=== PATIENT | female | born 1945 | race Hispanic/Latino ===

== ENCOUNTER → 2017-08-05 | Outpatient (CLI) | payer MEDICARE ==
[~2017-08-05] MED LIST: ATOR10 PO; GLIP5TAB11 PO; INSLAN SQ; LEVO500T89 PO; LEVO50TA11 PO; LOSA50TA37 PO; METF10004 PO; SITA100T12 PO; SULF10VI2 IV
== END | disposition home or self-care (01) ==
LOC: RAH 09:01
PROVIDERS: ATTEND Family Medicine
DX: K21.9 Gastro-esophageal reflux disease without esophagitis (principal); K44.9 Diaphragmatic hernia without obstruction or gangrene
CPT/HCPCS: 74240

== ENCOUNTER → 2022-03-09 | Outpatient (CLI) | payer MEDICARE ==
[~2022-03-09] MED LIST changes: +LEVO-70 PO; -LEVO500T89 PO; -LOSA50TA37 PO; +LOSA50TA64 PO; +METF-446 PO; -METF10004 PO
== END | disposition home or self-care (01) ==
LOC: RAH 09:20
PROVIDERS: ATTEND Nurse Practitioner Family
DX: R05.9 Cough, unspecified (principal)
CPT/HCPCS: 71046

== ENCOUNTER 2022-09-14 15:22 | Observation (INO) | payer MEDICARE ==
[~2022-09-14] VITALS: Ht 167.6 cm; Wt 64.9 kg
[~2022-09-14 15:22] MED LIST changes: +AEC81 PO; +AMLO-258 PO; -ATOR10 PO; +ATOR40TA69 PO; +CLOP-31 PO; +INSU200I4 SQ; +LEVO75CA5 PO; +LOSA-418 PO; -LOSA50TA64 PO; +METO25 PO; +MONT-39 PO; +OMEP40CA21 PO
[2022-09-14 15:38] LABS: BASOPHILS % (AUTO) 0.7 % (0.0-5.0); EOSINOPHILS % (AUTO) 1.5 % (0.0-8.0); HEMATOCRIT 41.2 % (36-48); LYMPHOCYTES % (AUTO) 29.6 % (21.0-51.0); MEAN CORPUSCULAR HEMOGLOBIN 26.5 pg (27.0-33.0); MEAN CORPUSCULAR HGB CONC 31.8 g/dL (32.0-36.0); MEAN CORPUSCULAR VOLUME 83.2 fL (79-99); MONOCYTES % (AUTO) 6.2 % (3.0-13.0); NEUTROPHILS % (AUTO) 61.2 % (40.0-77.0); PLATELET COUNT (AUTO) 334 K/uL (130-400); RED BLOOD CELL COUNT(AUTO) 4.95 MIL/uL (4.00-5.50); RED CELL DISTRIBUTION WIDTH 14.1 % (11.0-15.5)
[2022-09-14 15:49] LABS: POTASSIUM 4.1 mmol/L (3.5-5.1)
[2022-09-14 15:54] LABS: ALBUMIN 3.6 g/dL (3.5-5.0); TOTAL PROTEIN, SERUM 8.3 g/dL (6.0-8.3)
[2022-09-14 16:46] LABS: B-TYPE NATRIURETIC PEPTIDE 730 pg/mL (0-100)
[2022-09-14] MEDS ORDERED: CARVEDILOL 6.25 MG TABLET PO ONE (17:00)
[2022-09-14] MEDS ORDERED: LOSARTAN 25 MG TABLET PO ONE (17:00)
[2022-09-14 17:25] LABS: APPEARANCE,URINE CLEAR (CLEAR); BILIRUBIN,URINE NEGATIVE (NEGATIVE); COLOR,URINE COLORLESS (YELLOW); GLUCOSE, URINE (UA) NEGATIVE (NEGATIVE); KETONES,URINE NEGATIVE (NEGATIVE); LEUKOCYTE ESTERASE ,URINE NEGATIVE Leu/uL (NEGATIVE); NITRATE,URINE NEGATIVE (NEGATIVE); OCCULT BLOOD,URINE NEGATIVE (NEGATIVE); PROTEIN,URINE NEGATIVE (NEGATIVE); UROBILINOGEN,URINE 0.2 mg/dL (0.2-1.0)
[2022-09-14 17:27] LABS: RBC,URINE 0-1 /HPF (0-1); SQUAMOUS EPITHELIAL CELL,UR RARE /HPF (0-2); WBC,URINE 0-1 /HPF (0-1)
[2022-09-14] MEDS ORDERED: GLUCAGON 1MG KIT 1 MG ML IM PRN (17:30)
[2022-09-14] MEDS ORDERED: KCL 20 MEQ ERTAB PO PRN (17:30)
[2022-09-14] MEDS ORDERED: ONDANSETRON 4MG INJ IV PRN (17:30)
[2022-09-14] MEDS ORDERED: DEXTROSE 50%-WATER 50 ML DISP.SYRIN IV PRN (17:30)
[2022-09-14] MEDS ORDERED: LACTULOSE 20 GM/30 ML UDCUP PO PRN (17:30)
[2022-09-14] MEDS ORDERED: MAGNESIUM 2GM PREMIX 50ML 50 ML IV PRN (17:30)
[2022-09-14] MEDS ORDERED: NITROGLYCERIN 0.4 MG SL TAB SL PRN (17:30)
[2022-09-14] MEDS ORDERED: DIPHENHYDRAMINE HCL 25 MG CAPSULE PO PRN (17:30)
[2022-09-14] MEDS ORDERED: POTASSIUM CHLORIDE 10% ELIXIR 20 MEQ/15 ML UDCUP PO PRN (17:30)
[2022-09-14] MEDS ORDERED: DiphenhydrAMINE HCL 50 MG/ML VIAL IV PRN (17:30)
[2022-09-14] MEDS ORDERED: GUAIFENESIN-DM 200/20 MG 10 ML PO PRN (17:30)
[2022-09-14] MEDS ORDERED: MAG/ALUM/SIMETH 30 ML UDCUP PO PRN (17:30)
[2022-09-14] MEDS ORDERED: ACETAMINOPHEN 325 MG TAB PO PRN ×2 (17:30)
[2022-09-14] MEDS ORDERED: POTASSIUM CHLORIDE 20MEQ/100ML 100 ML IV PRN (17:30)
[2022-09-14] MEDS ORDERED: HYDROMORPHONE 1 MG INJ IV PRN (17:30)
[2022-09-14] MEDS ORDERED: HYDROCODONE/ACETAMINOPHEN 5/325 MG TAB PO PRN ×2 (17:30)
[2022-09-14 20:37] VITALS: BP 137/61
[2022-09-14] MEDS: INSULIN HUMULIN R 100 UNIT/ML 3ML SQ SCH (21:00)
[2022-09-14] MEDS: CARVEDILOL 6.25 MG TABLET PO SCH (21:00)
[2022-09-14] MEDS: FAMOTIDINE 20MG VIAL IV SCH (21:00)
[2022-09-14] MEDS: FAMOTIDINE 20MG TAB PO SCH (22:00)
[2022-09-14] MEDS: ATORVASTATIN 40 MG TABLET PO SCH (22:00)
[2022-09-14] MEDS: MONTELUKAST SODIUM 10 MG TAB PO SCH (22:00)
[2022-09-14] MEDS: HEPARIN 5,000 UNIT VIAL SQ SCH (22:05)
[2022-09-14 23:20] VITALS: BP 113/56
[2022-09-15 04:00] VITALS: BP_SYST 120; BP_SYST 134; BP_DIAS 61; BP_DIAS 82
[2022-09-15 04:24] LABS: BASOPHILS % (AUTO) 0.9 % (0.0-5.0); EOSINOPHILS % (AUTO) 2.7 % (0.0-8.0); HEMATOCRIT 36.3 % (36-48); LYMPHOCYTES % (AUTO) 28.8 % (21.0-51.0); MEAN CORPUSCULAR HGB CONC 31.4 g/dL (32.0-36.0); MONOCYTES % (AUTO) 7.6 % (3.0-13.0); NEUTROPHILS % (AUTO) 59.4 % (40.0-77.0); PLATELET COUNT (AUTO) 260 K/uL (130-400); RED BLOOD CELL COUNT(AUTO) 4.22 MIL/uL (4.00-5.50); RED CELL DISTRIBUTION WIDTH 14.2 % (11.0-15.5); WHITE BLOOD COUNT (AUTO) 9.8 K/uL (4.8-10.8)
[2022-09-15 04:43] LABS: ALBUMIN 2.8 g/dL (3.5-5.0); MAGNESIUM 1.6 mg/dL (1.80-2.40); PHOSPHORUS 4.9 mg/dL (2.5-4.9); POTASSIUM 4.2 mmol/L (3.5-5.1); TOTAL PROTEIN, SERUM 6.7 g/dL (6.0-8.3)
[2022-09-15] MEDS: INSULIN HUMULIN R 100 UNIT/ML 3ML SQ SCH ×4 (05:54→21:12)
[2022-09-15] MEDS: LEVOTHYROXINE 75 MCG TABLET PO SCH (06:03)
[2022-09-15] MEDS: FAMOTIDINE 20MG TAB PO SCH (08:44)
[2022-09-15] MEDS: DULOXETINE HCL 30 MG CAP PO SCH (08:44)
[2022-09-15] MEDS: CLOPIDOGREL 75MG TAB PO SCH (08:44)
[2022-09-15] MEDS: ASPIRIN 81 MG EC TAB PO SCH (08:44)
[2022-09-15] MEDS: AMLODIPINE 5 MG TAB PO SCH (08:45)
[2022-09-15] MEDS: LOSARTAN 50 MG TABLET PO SCH (08:46)
[2022-09-15] MEDS: CARVEDILOL 6.25 MG TABLET PO SCH ×2 (08:46→20:41)
[2022-09-15 08:55] VITALS: BP 131/51
[2022-09-15] MEDS: HEPARIN 5,000 UNIT VIAL SQ SCH ×3 (08:59→20:39)
[2022-09-15] MEDS ORDERED: LOSARTAN 25 MG TABLET PO SCH (09:00)
[2022-09-15] MEDS: FAMOTIDINE 20MG VIAL IV SCH (09:00)
[2022-09-15 12:34] VITALS: BP 123/52
[2022-09-15 16:12] VITALS: BP 142/65
[2022-09-15 19:41] VITALS: BP 131/66
[2022-09-15] MEDS: ATORVASTATIN 40 MG TABLET PO SCH (20:37)
[2022-09-15] MEDS: MONTELUKAST SODIUM 10 MG TAB PO SCH (20:38)
[2022-09-15 23:39] VITALS: BP 124/56
[2022-09-16 03:50] LABS: BASOPHILS % (AUTO) 0.8 % (0.0-5.0); EOSINOPHILS % (AUTO) 2.3 % (0.0-8.0); HEMATOCRIT 36.5 % (36-48); LYMPHOCYTES % (AUTO) 28.7 % (21.0-51.0); MEAN CORPUSCULAR HEMOGLOBIN 26.5 pg (27.0-33.0); MEAN CORPUSCULAR HGB CONC 31.2 g/dL (32.0-36.0); MEAN CORPUSCULAR VOLUME 84.9 fL (79-99); MONOCYTES % (AUTO) 8.2 % (3.0-13.0); NEUTROPHILS % (AUTO) 59.5 % (40.0-77.0); PLATELET COUNT (AUTO) 306 K/uL (130-400); WHITE BLOOD COUNT (AUTO) 10.2 K/uL (4.8-10.8)
[2022-09-16 04:00] VITALS: BP 126/57
[2022-09-16 04:05] LABS: ALBUMIN 2.7 g/dL (3.5-5.0); TOTAL PROTEIN, SERUM 6.4 g/dL (6.0-8.3)
[2022-09-16] MEDS: LEVOTHYROXINE 75 MCG TABLET PO SCH (06:22)
[2022-09-16] MEDS: INSULIN HUMULIN R 100 UNIT/ML 3ML SQ SCH ×2 (06:44→14:05)
[2022-09-16 07:00] VITALS: BP 122/59
[2022-09-16] MEDS: FAMOTIDINE 20MG VIAL IV SCH (09:00)
[2022-09-16] MEDS ORDERED: CARVEDILOL 12.5 MG TABLET PO SCH ×2 (09:00)
[2022-09-16] MEDS: HEPARIN 5,000 UNIT VIAL SQ SCH ×2 (10:02→14:06)
[2022-09-16] MEDS: AMLODIPINE 5 MG TAB PO SCH (10:03)
[2022-09-16] MEDS: ASPIRIN 81 MG EC TAB PO SCH (10:03)
[2022-09-16] MEDS: DULOXETINE HCL 30 MG CAP PO SCH (10:03)
[2022-09-16] MEDS: FAMOTIDINE 20MG TAB PO SCH (10:04)
[2022-09-16] MEDS: LOSARTAN 50 MG TABLET PO SCH (10:04)
[2022-09-16] MEDS: CLOPIDOGREL 75MG TAB PO SCH (10:05)
[2022-09-16 11:00] VITALS: BP 130/60
[2022-09-16] MEDS ORDERED: DULO30CA2 PO (12:43)
[2022-09-16] MEDS ORDERED: CARV6.25 PO (12:43)
== END 2022-09-16 15:17 | disposition home or self-care (01) ==
LOC: EDH 15:22 → INTOOBSV 17:21 → EDHIP 17:21 → 2AH 20:22
PROVIDERS: ADMIT Internal Medicine; ATTEND Internal Medicine
DX: R07.89 Other chest pain (principal); R77.8 Other specified abnormalities of plasma proteins; I51.81 Takotsubo syndrome; I12.9 Hypertensive chronic kidney disease with stage 1 through stage 4 chronic kidney disease, or unspecified chronic kidney disease; E11.22 Type 2 diabetes mellitus with diabetic chronic kidney disease; N18.32 Chronic kidney disease, stage 3b; E03.9 Hypothyroidism, unspecified; E78.5 Hyperlipidemia, unspecified; F41.9 Anxiety disorder, unspecified; E78.00 Pure hypercholesterolemia, unspecified; I25.10 Atherosclerotic heart disease of native coronary artery without angina pectoris; Z79.82 Long term (current) use of aspirin; Z90.710 Acquired absence of both cervix and uterus; Z79.899 Other long term (current) drug therapy
CPT/HCPCS: 99285; 71045; 96372 ×3; 83735 ×2; 84484; 80053 ×3; 83880; 85025 ×3; 82948 ×7; 81001; 36415 ×3; 93005; 93306; 96365; 96366; 84100; 93356; J1644 ×6; J1815 ×2; J3475; G0378

== ENCOUNTER → 2022-12-01 | Outpatient (CLI) | payer MEDICARE ==
[~2022-12-01] MED LIST changes: +CARV6.25 PO; +DULO30CA2 PO; -GLIP5TAB11 PO; -INSLAN SQ; -LEVO-70 PO; -LEVO50TA11 PO; -METF-446 PO; -METO25 PO; -SITA100T12 PO; -SULF10VI2 IV
== END | disposition home or self-care (01) ==
LOC: SHCH 13:38
PROVIDERS: ATTEND Student in an Organized Health Care Education/Training Program
DX: I11.0 Hypertensive heart disease with heart failure (principal); I50.9 Heart failure, unspecified; I08.0 Rheumatic disorders of both mitral and aortic valves
CPT/HCPCS: 93306

== ENCOUNTER → 2023-07-04 | Outpatient (CLI) | payer MEDICARE | END | disposition home or self-care (01) | LOC: SHCH 09:34 | PROVIDERS: ATTEND Student in an Organized Health Care Education/Training Program | DX: I42.1 Obstructive hypertrophic cardiomyopathy (principal) | CPT/HCPCS: 93306 ==

== ENCOUNTER → 2023-10-26 | Outpatient (CLI) | payer MEDICARE | END | disposition home or self-care (01) | LOC: SHCH 09:14 | PROVIDERS: ATTEND Student in an Organized Health Care Education/Training Program | DX: I08.8 Other rheumatic multiple valve diseases (principal); I42.1 Obstructive hypertrophic cardiomyopathy | CPT/HCPCS: 93306 ==

== ENCOUNTER → 2023-12-07 | Outpatient (CLI) | payer MEDICARE ==
[~2023-12-07] MED LIST changes: +IOHEXOL 350 MG/ML 100ML INFUS..BTL IV ONE; +METOPROLOL TARTRATE 1 MG/ML 5ML VIAL IV ONE; +NITROGLYCERIN 4.1 GM SPRAY TL ONE
== END | disposition home or self-care (01) ==
LOC: CANPRECLI → RAH 08:33
PROVIDERS: ATTEND Student in an Organized Health Care Education/Training Program
DX: R07.9 Chest pain, unspecified (principal); M47.815 Spondylosis without myelopathy or radiculopathy, thoracolumbar region
CPT/HCPCS: 75574; J3490 ×2; Q9967

== ENCOUNTER 2024-01-09 05:50 | Day surgery (SDC) | payer MEDICARE ==
[2024-01-06 11:29] LABS: BASOPHILS # (AUTO) 0.08 K/uL (0.00-0.20); BASOPHILS % (AUTO) 0.9 % (0.0-5.0); EOSINOPHILS # (AUTO) 0.17 K/uL (0.00-0.70); EOSINOPHILS % (AUTO) 1.8 % (0.0-8.0); HEMATOCRIT 43.4 % (36-48); IMMATURE GRANULOCYTE ABSOLUTE 0.04 K/uL (0-1); LYMPHOCYTES # (AUTO) 2.2 K/uL (1.0-4.8); LYMPHOCYTES % (AUTO) 24.3 % (21.0-51.0); MEAN CORPUSCULAR HEMOGLOBIN 25.3 pg (27.0-33.0); MEAN CORPUSCULAR HGB CONC 30.4 g/dL (32.0-36.0); MEAN CORPUSCULAR VOLUME 83.1 fL (79-99); MONOCYTES # (AUTO) 0.6 K/uL (0.1-1.0); MONOCYTES % (AUTO) 6.8 % (3.0-13.0); NEUTROPHILS # (AUTO) 6.1 K/uL (1.8-7.7); NEUTROPHILS % (AUTO) 65.8 % (40.0-77.0); PLATELET COUNT (AUTO) 264 K/uL (130-400); RED BLOOD CELL COUNT(AUTO) 5.22 MIL/uL (4.00-5.50); RED CELL DISTRIBUTION WIDTH 16.3 % (11.0-15.5); WHITE BLOOD COUNT (AUTO) 9.2 K/uL (4.8-10.8)
[2024-01-06 11:30] VITALS: BP 138/65; PULSE 66; RESP 18; TEMP 97.9
[2024-01-06 11:36] LABS: CREATININE 1.4 mg/dL (0.5-1.0); POTASSIUM 5.2 mmol/L (3.5-5.1)
[2024-01-06 11:59] LABS: INR 1.01 (0.85-1.15); PROTHROMBIN TIME 10.9 SEC (9.6-11.6)
[2024-01-06 12:00] LABS: PARTIAL THROMBOPLASTIN TIME 28.4 SEC (26.3-35.5)
[2024-01-06 12:23] LABS: B-TYPE NATRIURETIC PEPTIDE 315 pg/mL (0-100)
[2024-01-09] VITALS (14 sets, daily range): BP systolic 110–142; BP diastolic 39–59; PULSE 65–87; RESP 13–18; TEMP 97.8–97.9
[~2024-01-09] VITALS: Ht 157.5 cm; Wt 74.7 kg
[~2024-01-09 05:50] MED LIST changes: -AEC81 PO; -AMLO-258 PO; +ASPI-1026 PO; +CARV12.511 PO; -CARV6.25 PO; -CLOP-31 PO; +DAPA5TAB PO; +FURO20TA4 PO; -IOHEXOL 350 MG/ML 100ML INFUS..BTL IV ONE; +LORA10TA7 PO; -LOSA-418 PO; +LOSA25TA41 PO; -METOPROLOL TARTRATE 1 MG/ML 5ML VIAL IV ONE; -NITROGLYCERIN 4.1 GM SPRAY TL ONE
[2024-01-09] MEDS ORDERED: 0.9%NACL 1000ML 1,000 ML IV SCH ×2 (07:00→08:30)
[2024-01-09] MEDS: 0.9%NACL 1000ML 1,000 ML IV ONE (07:03)
[2024-01-09] MEDS ORDERED: LIDOCAINE HCL 400MG/20ML VIAL ONE (07:17)
[2024-01-09] MEDS ORDERED: HEParin 10,000 UNIT/10ML (1,000 UNIT/ML) VIAL ONE (07:17)
[2024-01-09] MEDS ORDERED: IOHEXOL 350 MG/ML 100ML INFUS..BTL IV ONE (07:17)
[2024-01-09] MEDS ORDERED: HEParin-NS 1,000 UNIT/500 ML 1,000 ML IV ONE (07:17)
[2024-01-09] MEDS ORDERED: VERAPAMIL HCL 2.5 MG/ML VIAL ONE (07:17)
[2024-01-09] MEDS ORDERED: NITROGLYCERIN 50MG VIAL ONE (07:17)
[2024-01-09] MEDS ORDERED: FENTanyl CITRate PF 50 MCG/1 ML 2ML VIAL ONE (07:26)
[2024-01-09] MEDS ORDERED: MIDAZOLAM HCL 1 MG/ML 2ML VIAL ONE (07:26)
[2024-01-09] MEDS ORDERED: GLUCAGON 1MG KIT 1 MG ML IM PRN (08:30)
[2024-01-09] MEDS ORDERED: DEXTROSE 50%-WATER 50 ML DISP.SYRIN IV PRN (08:30)
== END 2024-01-09 12:30 | disposition home or self-care (01) ==
LOC: DAH 05:50
PROVIDERS: ATTEND Student in an Organized Health Care Education/Training Program
DX: I25.118 Atherosclerotic heart disease of native coronary artery with other forms of angina pectoris (principal); I35.0 Nonrheumatic aortic (valve) stenosis; I05.0 Rheumatic mitral stenosis; E78.5 Hyperlipidemia, unspecified; Z79.01 Long term (current) use of anticoagulants; Z88.0 Allergy status to penicillin; Z90.710 Acquired absence of both cervix and uterus; Z79.82 Long term (current) use of aspirin; Z79.899 Other long term (current) drug therapy
CPT/HCPCS: 80048; 83880; 85025; 85610; 85730; 36415; 71045; 93005; 93460; 82948; C1894 ×2; C1769; A4649; J3010; J3490 ×3; J7030; J1644 ×2; J2250; Q9967; A4215; A4222; A4221; A4663; A4216; A4606; Q9965; A4223 ×3; 99156; 99157

== ENCOUNTER → 2024-08-28 | Outpatient (CLI) | payer MEDICARE ==
[~2024-08-28] MED LIST changes: -LEVO75CA5 PO; +LEVO75CA6 PO
--- NOTE | 2024-08-28 15:31 | HMCIMG ---
DEXA BONE DENSITY SURVEY HISTORY: Osteoporosis COMPARISON: None FINDINGS: Bone densitometry study was performed. Bone mineral density of the lumbar spine is 0.777 gram per centimeter square which corresponds to a T score of -2.5 and a Z score of 0.3. Bone mineral density of the left hip is 0.73 grams per centimeter square which corresponds to a T score of -1.3 and a Z score of 0.8. IMPRESSION: 1. Osteopenia of the lumbar spine and left hip.
== END | disposition home or self-care (01) ==
LOC: RAH 12:44
PROVIDERS: ATTEND Nurse Practitioner Family
DX: M85.89 Other specified disorders of bone density and structure, multiple sites (principal); M81.0 Age-related osteoporosis without current pathological fracture
CPT/HCPCS: 77080

== ENCOUNTER → 2024-08-30 | Outpatient (CLI) | payer MEDICARE ==
--- NOTE | 2024-08-30 12:01 | HMCIMG ---
US ARTERIAL BILAT LOW EXT DUPL HISTORY: Peripheral vascular disease COMPARISON: None TECHNIQUE: Bilateral lower extremity arterial Doppler ultrasound study was performed. FINDINGS: Abnormal monophasic arterial waveforms are seen in the posterior tibial, anterior tibial and dorsalis pedal arteries bilaterally. Normal triphasic and biphasic arterial waveforms are noted in the common femoral, deep femoral, superficial femoral, popliteal, posterior tibial and dorsalis pedal arteries. On the right, the peak systolic velocity of the common femoral artery is 179 cm/s, the proximal femoral artery is 105 cm/s, the mid femoral artery is 112 cm/s, the distal femoral artery is 106 cm/s, the proximal popliteal artery is 80 cm/s, the distal popliteal artery is 152 cm/s, the anterior tibial artery is 64 cm/s, the posterior tibial artery artery is 31 cm/s,and the dorsalis pedal artery is 47 cm/s. On the left, the peak systolic velocity of the common femoral artery is 163 cm/s, the proximal femoral artery is 111 cm/s, the mid femoral artery is 100 cm/s, the distal femoral artery is 85 cm/s, the proximal popliteal artery is 78 cm/s, the distal popliteal artery is 98 cm/s, the anterior tibial artery is 105 cm/s, the posterior tibial artery artery is 18 cm/s,and the dorsalis pedal artery is 79 cm/s. IMPRESSION: 1. Atherosclerotic disease. 2. Abnormal monophasic arterial waveforms are seen in the posterior tibial, anterior tibial and dorsalis pedal arteries bilaterally. High-grade stenosis is seen of the left anterior tibial
== END | disposition home or self-care (01) ==
LOC: RAH 08:47
PROVIDERS: ATTEND Nurse Practitioner Family
DX: I70.203 Unspecified atherosclerosis of native arteries of extremities, bilateral legs (principal); E11.51 Type 2 diabetes mellitus with diabetic peripheral angiopathy without gangrene; E11.621 Type 2 diabetes mellitus with foot ulcer
CPT/HCPCS: 93925